=== PATIENT | female | born 1990 | race Two or more races ===

== ENCOUNTER 2024-04-26 17:23 | Emergency (ER) | payer BC, OTHER ==
[~2024-04-26] VITALS: Ht 154.9 cm; Wt 86.9 kg
[2024-04-26 18:00] LABS: Urine WBC None Seen /hpf (0 - 5)
[2024-04-26 18:17] LABS: Urine Bacteria FEW /hpf (None Seen); Urine Blood 3+ /uL (Negative); Urine Budding Yeast FEW /hpf (None Seen); Urine Clarity Ex.Turbid (Clear); Urine Color Light-Orange (Yellow); Urine Hyaline Cast FEW /lpf (0 - 2); Urine Mucus MODERATE (None Seen); Urine Protein, UAD 2+ (Negative); Urine Specific Gravity 1.033 (1.001-1.035); Urine Urobilinogen Normal (Negative); Urine pH 5.5 (5.0-9.0)
[2024-04-26 19:09] LABS: Basophils # (auto) 0.1 10 ^3/uL (0-0.2); Basophils % (auto) 0.4 % (0.0-2.0); Eosinophils # (auto) 0.1 10 ^3/uL (0-0.8); Eosinophils % (auto) 0.6 % (0.0-7.0); Hematocrit 42.5 % (36.0-46.0); Hemoglobin 14.1 g/dL (12.2-16.2); Lymphocytes # (auto) 1.7 10 ^3/uL (0.4-5.4); Lymphocytes % (auto) 12.5 % (10.0-50.0); Mean Corpuscular Hemoglobin 28.8 pg (28.0-32.0); Mean Corpuscular Hgb Conc. 33.3 g/dL (32.0-36.0); Mean Corpuscular Volume 86.6 fL (80.0-100.0); Monocytes # (auto) 0.5 10 ^3/uL (0-1.3); Neutrophils # (auto) 11.3 10 ^3/uL (1.6-8.6); Neutrophils % (auto) 82.5 % (37.0-80.0); Nucleated Red Blood Cells % 0.1 %; Red Blood Cells 4.91 10^6/uL (4.0-5.20); Red Cell Distribution Width 13.3 % (11.8-14.3); White Blood Cell 13.7 10^3/uL (4.4-10.8)
[2024-04-26 19:25] LABS: Alanine Aminotransferase 26 U/L (7-40); Albumin 4.5 g/dL (3.2-4.8); Alkaline Phosphatase 112 U/L (46-116); Anion Gap 7 (5-15); Aspartate Aminotransferase 17 U/L (13-40); BUN/Creatinine Ratio 8.4 (10.0-20.0); Bilirubin, Total 0.2 mg/dL (0.2-1.0); Blood Urea Nitrogen 7 mg/dL (9-23); Calcium 9.9 mg/dL (8.7-10.4); Carbon Dioxide 24 mmol/L (20-30); Chloride 108 mmol/L (98-107); Glucose 104 mg/dL (74-106); Lipase 26 U/L (12-53); Potassium 3.9 mmol/L (3.5-5.1); Sodium 139 mmol/L (136-145); Total Protein 7.9 g/dL (5.7-8.2)
[2024-04-26 21:21] VITALS: TEMP 98.1
[2024-04-26 21:22] VITALS: PULSE 80; RESP 20; O2SAT 100
[2024-04-26] MEDS: KETOROLAC TROMETH 60MG/2ML VIAL IM ONE (21:29)
[2024-04-26] MEDS: TAMSULOSIN HYDROCHLORIDE 0.4 MG CAP PO ONE (21:30)
[2024-04-26] MEDS ORDERED: CEPH250C PO (21:57)
[2024-04-26] MEDS ORDERED: IBU600T PO (21:57)
[2024-04-26] MEDS ORDERED: TAMS-35 PO (21:57)
[2024-04-26 22:35] VITALS: BP 132/82; PULSE 82; RESP 22; O2SAT 100
== END 2024-04-26 22:35 | disposition home or self-care (01) ==
LOC: ER 17:23
DX: N23 Unspecified renal colic (principal); N13.30 Unspecified hydronephrosis; E11.9 Type 2 diabetes mellitus without complications
CPT/HCPCS: 36415; 74176; 80053; 81001; 83690; 85025; 96372; 99285; J1885